=== PATIENT | male | born 1960 | race Hispanic/Latino ===

== ENCOUNTER 2023-10-26 11:10 | Inpatient (IN) | payer OTHER ==
--- OUTSIDE RECORDS SUMMARY | 2023-10-27 09:34 | XMS REPORT | Continuity of Care Document ---
Author Name Unknown Address [address] [facility] [address] [place] [address] [facility] thconnect Address [address] [facility] [address] [place] [address] Care Team Providers Care Delivery Analyst Name Role Phone Unavailable Unavailable Unavailable Encounters Start Date/Time End Date/Time Encounter Type Admission Type Attending Clinicians Care Facility Care Department Encounter ID Source 2023-10-19 08:06:25 2023-10-19 08:06:25 Outpatient SFA SFA [id number] Ramirez Flores 2023-10-18 10:55:17 2023-10-18 10:55:17 Outpatient SFA [id number] [id number] Ramirez Flores Results Test Description Test Time Test Comments Results Result Co mments Source LIPID [id number] 06:01:49* Test Item Value Reference Range Interpretation Comme nts CHOLESTEROL (test code = 2210) 182 MG/DL <200 TRIGLYCERIDES (test code = 2232) 96 MG/DL <150 HDL CHOLESTEROL (test code = 2220) 46 MG/DL >39 CALC LDL CHOL (test code = 2237) 116 MG/DL <100 H NOTE: CALCULATED LDL IS BASED ON IMAN-JI METHOD WHICHINCLUDES ADJUSTABLE TRIGLYCERIDE:VLDL CHOLESTEROL RATIO.THIS FACTOR VARIES BY MEASURED TRIGLYCERIDE AND NON-HDLCHOLESTEROL CONCENTRATIONS WITH INCREASED CALCULATED LDL SEENIN HIGHER TRIGLYCERIDE OR LOWER NON-HDL SPECIMENS. FOR MOREINFORMATION, SEE CLIENT ANNOUNCEMENT AT [email or web address] RATIO LDL/HDL (test code = 2238) 2.52 RATIO <3.55 COMPREHENSIVE METABOLIC [id number] 06:01:49* Test Item Value Reference Range Interpretation Comme nts GLUCOSE (test code = 2217) 123 MG/DL 70-99 H BUN (test code = 2208) 11 MG/DL 8-23 CREATININE (test code = 2213) 0.76 MG/DL 0.80-1.40 L eGFR (2020 CKD-EPI) (test code = 77550) 100 ML/MIN/1.73 >60 CALC BUN/CREAT (test code = 2234) 14 RATIO 6-28 SODIUM (test code = 2230) 139 MEQ/L 133-146 POTASSIUM (test code = 2227) 4.3 MEQ/L 3.5-5.4 CHLORIDE (test code = 2214) 102 MEQ/L 95-107 CARBON DIOXIDE (test code = 2205) 24 MEQ/L 19-31 CALCIUM (test code = 2208) 9.6 MG/DL 8.5-10.5 PROTEIN, TOTAL (test code = 2228) 7.9 G/DL 6.1-8.3 ALBUMIN (test code = 2200) 4.5 G/DL 3.5-5.2 CALC GLOBULIN (test code = 2239) 3.4 G/DL 1.9-3.7 CALC A/G RATIO (test code = 2233) 1.3 RATIO 1.0-2.6 BILIRUBIN, TOTAL (test code = 2206) 0.6 MG/DL <=1.2 ALKALINE PHOSPHATASE (test code = 2203) 102 U/L 40-123 AST (test code = 2217) 17 U/L 9-50 ALT (test code = 2218) 27 U/L 5-50 HEMOGLOBIN [id number] 04:05:52* Test Item Value Reference Range Interpretation Comme nts HEMOGLOBIN A1c (test code = 06684) 6.1 % 4.2-5.6 H [employer] GUIDELINES FOR HGB A1C: PREDIABETES/INCREASED RISK . . . . . . . 5.7-6.4% DIAGNOSIS OF DIABETES . . . . . . . . . >=6.5% WITH CONFIRMATION OR APPROPRIATE SYMPTOMS NOTE: ASSAY MAY BE AFFECTED BY HEMOGLOBINOPATHIES (SICKLE CELL ANEMIA, S-C DISEASE, OTHERS) OR ARTIFICIALLY LOWERED BY DECREASED RED CELL SURVIVAL (HEMOLYTIC ANEMIAS, BLOOD LOSS, ETC.). CONSIDER ALTERNATE TESTING OR LABORATORY CONSULTATION. CBC W/AUTO DIFF WITH [id number] 03:25:25* Test Item Value Reference Range Interpretation Comme nts WBC (test code = 1001) 9.1 K/UL 3.5-11.0 RBC (test code = 1002) 5.14 M/UL 4.50-6.10 HEMOGLOBIN (test code = 1003) 14.5 G/DL 13.5-17.0 HEMATOCRIT (test code = 1004) 44.6 % 40.0-51.0 MCV (test code = 1005) 86.8 fL 80.0-99.0 MCH (test code = 1006) 28.2 PG 25.0-33.0 MCHC (test code = 1007) 32.5 G/DL 31.0-36.0 RDW (test code = 1038) 12.1 % 11.5-15.0 NEUTROPHILS (test code = 1008) 68.4 % LYMPHOCYTES (test code = 1010) 22.6 % MONOCYTES (test code = 1011) 6.5 % EOSINOPHILS (test code = 1012) 1.5 % BASOPHILS (test code = 1013) 0.7 % IMMATURE GRANULOCYTES (test code = 1036) 0.3 % NUCLEATED RBCS (test code = 1065) 0.0 /100 WBC'S See_Comment [Automated messa ge] The system which generated this result transmitted reference range: 0.0. The reference range was not used to interpret this result as normal/abnormal. PLATELET COUNT (test code = 1015) 371 K/UL 130-400 ABSOLUTE NEUTROPHILS (test code = 1066) 6.20 K/UL 1.50-7.50 ABSOLUTE LYMPHOCYTES (test code = 1067) 2.05 K/UL 1.00-4.00 ABSOLUTE MONOCYTES (test code = 1068) 0.59 K/UL 0.20-1.00 ABSOLUTE EOSINOPHILS (test code = 1040) 0.14 K/UL 0.00-0.50 ABSOLUTE BASOPHILS (test code = 1069) 0.06 K/UL 0.00-0.20 ABS IMMATURE GRANULOCYTES (test code = 1020) 0.03 K/UL 0.00-0.10 ABS NUCLEATED RBCS (test code = 91926) 0.00 K/UL 0.00-0.11
[2023-10-27] MEDS ORDERED: DOCUSATE NA 100 MG CAP PO PRN (10:32)
[2023-10-27] MEDS ORDERED: HYDROCORTISONE 1 % CREAM 30GM TOP PRN (10:33)
[2023-10-27] MEDS: ACETAMINOPHEN 500 MG TAB PO PRN (11:03)
[2023-10-27 14:51] VITALS: BMI 30.2
[2023-10-27] MEDS: GABAPENTIN 300 MG CAP PO SCH ×2 (15:04→19:21)
[2023-10-27] MEDS: MAGNESIUM OXIDE 400 MG TAB PO SCH ×2 (15:04→19:21)
[2023-10-27 15:52] LABS: Specific Gravity > 1.030 (1.005-1.030); Urine Bacteria None Seen /HPF (<20); Urine Bilirubin NEGATIVE (Negative); Urine Blood Negative (Negative); Urine Clarity Extremely Turbid (Clear); Urine Color Yellow (Yellow); Urine Crystals Unidentified Few /HPF (None Seen); Urine Glucose NEGATIVE (Negative); Urine Mucus 4+ /HPF (None Seen); Urine Protein 1+ (Negative); Urine RBC <5 /HPF (None Seen); Urine Urobilinogen 1+ (Normal); Urine pH 5.5 (5.0-7.0)
[2023-10-27] MEDS: APIXABAN 2.5 MG TABLET PO SCH (19:21)
[2023-10-27] MEDS: ATORVASTATIN 10 MG TAB PO SCH (19:22)
[2023-10-27] MEDS: KETOCONAZOLE CREAM 15 GM TUBE TOP SCH (19:22)
--- NOTE | 2023-10-27 23:52 | HP ---
Date of Admission: 10/27/2023 Time Of Service: 1 p.m. Chief Complaint: "I became very weak and could not walk." History Of Present Illness: Mr. Mancilla is a 63-year-old right-handed patient with hyperte nsion, who is admitted to the inpatient rehabilitation unit with Guillain-[place]. Symptoms began arou nd the 19 of October, following about 3 weeks of a diarrheal illness. He developed ascending numb ness and weakness from the feet to the legs towards his knees. He was seen and evaluated, found to h ave loss of deep tendon reflexes and ascending numbness in the lower extremities. Evaluation include d a lumbar puncture, which identified elevated protein of 80, white blood cells of 1 with an albumino cytologic dissociation. He was diagnosed with Guillain-[place] syndrome and treated with IVIG 2 mg/kg over 5 days. He had cervical pain and neck spasms, and an MRI of the cervical spine was done and rul ed out acute abnormalities. He did require frequent neuro checks every 4 hours and blood pressure ma nagement, and was given gabapentin for neuropathic pain. He did have hypokalemia complicating his ho spital course. He was evaluated by Physical and Occupational Therapy, and felt to be functioning wel l below his baseline, requiring maximal assistance for transfers, mobilization, ambulation. As a res ult, he is determined to be a more appropriate candidate for aggressive inpatient rehabilitation whil e his comorbid hypokalemia, hypertension, and risk of worsening weakness, which may involve the respi ratory system are being managed inpatient. His admission would be more at risk if he were to be in a shelter facility given the lack of acute available medical management, and this will help hi m return towards his prior level of functioning where he may be able to return home with family. Past Medical History: As noted. Allergies: NO KNOWN DRUG ALLERGIES. X-ray/imaging: Chest x-ray on 10/20/2023 showed patchy bilateral interstitial and airspace opacifica tion, and peribronchial cuffing may represent bronchopneumonia. There is bibasilar segmental atelect asis. Cervical spine MRI done on 10/25/2023 shows multilevel cervical spinal degeneration changes wi thout significant canal stenosis. There is inflammatory versus infectious synovitis at the left C3-C 4 facet joint. There is moderate to severe left C3-C4 neural foraminal stenosis and moderate right C 4-C5 neural foraminal narrowing. Medications: Eliquis 2.5 mg twice daily, Tylenol 500 mg every 6 hours, Lipitor 10 mg at bedtime, Col mane 100 mg daily, gabapentin 600 mg 3 times daily, hydrochlorothiazide 12.5 mg daily, apply cortisone cream to itching area 3 times daily, ketoconazole cream applied topically twice daily, Prinivil 20 m g daily, magnesium oxide 400 mg twice daily. Family History: Noncontributory. Social History: Denies alcohol, tobacco, or IV drug use. Review of Systems: He denies recent fevers or chills, but has had abdominal pain with diarrhea as noted and progressive weakness in the lower extremities and numbness, and neck pain radiating into the arms. He has diffic ulty with his gait, balance, and coordination. Otherwise, no other positives on a 10-point systems r eview. Current Level Of Functioning: Currently, he is independent for eating, oral hygiene, toilet hygiene. Supervision for bathing. Upper body dressing, independent. Lower body dressing, contact guard to supervision. Sitting, contact guard to supervision. Maximum assistance for transferring from bed to chair. Ambulation: Did not ambulate at the time. He was very unsteady on his feet and then mobili zed the wheelchair, had difficulty doing so in therapy. Physical Examination: Vital Signs: Blood pressure 116/69, pulse of 104, respiratory rate 15, temperature 99.2, oxygen satu ration 94%. Weight 187 pounds, height 5 feet 6 inches, BMI 30.2. General: Mr. Mancilla is lying in bed. His family is at bedside. HEENT: He appears normocephalic, atraumatic. Sclerae anicteric. Oropharynx is pink and moist. Neck: Supple. Chest: Clear. Heart: Regular. Extremities: Show no significant clubbing, cyanosis, or edema. Neurological: Cranial nerves show no focal deficits. Motor examination: Upper extremities distally , mild weakness, 4/5 bilaterally; proximally 5/5. Lower extremities: He has at least 4/5 strength p roximally and distally. He has a sensory loss in a stocking-glove fashion and decreased reflexes in the lower extremities. Coordination shows dysmetria in jhfhjp-af-iyon and gvhz-jy-xcfl. He will be ambulated with gait belt. Laboratory Studies: White blood cell count 5.6, hemoglobin 12.7, hematocrit 38.7, platelets 174. So dium 137, potassium 3.9, glucose 105, BUN 14, creatinine 0.65. Calcium 8.8, magnesium 2.0. His urin alysis from 10/27/2023 shows extreme turbid clarity, specific gravity greater than 1.03, trace ketone s, 1+ urobilinogen, hyaline casts are greater than 20, urine mucus 4+, urine protein 1+. COVID-[address] is negative. Rehabilitation And Medical Assessment And Plan: Mr. Mancilla is admitted to inpatient rehabilitation unit with impairment category of 19, Guillain-[place] syndrome. 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 His comorbidities are decr ease in physical functioning, hypertension, pain, cervical radiculopathy at C4-5 bilaterally. Plan: 1.He will have physical and occupational therapy for 3.5 hours, 5 of 7 days. 2.DVT prophylaxis with Eliquis 2.5 mg twice daily. 3.Dyslipidemia, treated with Lipitor 10 mg at bedtime. 4.Constipation, treated with Colace 100 mg daily. 5.Pain, managed with Tylenol. 6.Blood pressure managed with hydrochlorothiazide with hold parameters of systolic blood pressures l ess than 120. Prinivil also will be held if systolic blood pressure is less than 120. Magnesium oxi de for muscle spasms 400 mg twice daily. Impact Of Comorbidities: Currently, the cervical radiculopathy can produce some pain in the upper ex tremities. Pain patch will be applied to the neck if need be and will have gabapentin adjustment. Eliza williamson is on 600 mg 3 times daily of gabapentin and that may be adjusted. Otherwise, his diffuse weakness in the lower extremities with incoordination may make it difficult for him to be able to ambulate we and return home. He will, however, have family training and depending on how well he is doing, marta y be able to go home. If not, may have to go to shelter for an extended period. His chest x -ray earlier did suggest possibility of pneumonia. A repeat chest x-ray will be done. Urinalysis al so suggests possibility of urinary tract infection and the urine cultures will be followed. Rehab Specific Plan: Mr. Mancilla will have physical and occupational therapy for 3.5 hours, 5 of 7 days to improve his ability to transfer from bed to chair, to toilet to shower. To be able to ambula te more than household distances greater than 250 feet if possible with a rolling walker. Propel a w heelchair also 250 feet and go up and down 10 steps; all with modified independence. Mr. Mancilla will have shelter 24 hours a day, physician evaluation on a daily basis, and [facility] evaluation and management to facilitate his rehabilitation improvement as he has physica l and occupational therapy. Given his complex condition and risk of further complications, rehabilit ation cannot be safely or effectively provided at a lower level facility such as shelter. Barriers To Discharge: Currently, his gait is unsteady and ataxic, and very difficult to ambulate an d his return of function such as coordination, especially in the lower extremities may extend beyond the time given in inpatient rehabilitation and again may have to go to shelter depending on h ow he is recovering. However, family will be involved and the goal is to get him home with [facility] to continue therapy. Length Of Stay: About 2 weeks. Disposition: Home with 24-hour care and supervision to avoid falling and injury. Prognosis: Fair. Rehabilitation Goals: 1.Become independent with upper and lower body dressing, toileting, showering, donning and doffing o f shoes. 2.Independently ambulate 250 feet with a rolling walker. 3.Independently propel a wheelchair 250 feet. 4.Independently go up and down 15 steps with bilateral handrails. 5.Independently perform all of his cognitive functioning, including medication management, good safe ty awareness and judgment. The above goals were reviewed with Mr. Mancilla and family, and they are in agreement. By signing this document, I acknowledge that I performed a full physical examination on Mr. Mancilla no later than 24 hours after his admission to the inpatient rehabilitative facility and determined th at he is able to tolerate the above course of treatment at an intensive level for a reasonable period of time. A detailed individualized plan of care for him will be completed by hospital day 4 based o n the preadmission screen, history and physical, and Therapy evaluations. NOELLE Voice ID: [id number]
[2023-10-28 03:51] LABS: Absolute Lymphocytes (CBC) 1.2 K/uL (0.7-4.9); Hematocrit 37.9 % (39.6-49.0); Lymphocytes % 19.5 % (15.3-44.8); MCV 88.3 fL (80-100); MPV 9.9 fL (7.6-11.3); Platelets 149 thou/uL (152-406); RBC Red Blood Cell Count 4.29 M/uL (4.33-5.43)
[2023-10-28 04:07] LABS: Albumin 2.8 g/dL (3.4-5.0); Magnesium 2.3 mg/dL (1.6-2.4); Potassium 4.1 mEq/L (3.5-5.1); Prealbumin 15.1 mg/dL (20-40)
[2023-10-28] MEDS: APIXABAN 2.5 MG TABLET PO SCH ×2 (07:39→20:23)
[2023-10-28] MEDS: MAGNESIUM OXIDE 400 MG TAB PO SCH ×2 (07:40→20:24)
[2023-10-28] MEDS: GABAPENTIN 300 MG CAP PO SCH ×3 (07:40→20:27)
[2023-10-28] MEDS: KETOCONAZOLE CREAM 15 GM TUBE TOP SCH ×2 (07:42→20:24)
[2023-10-28] MEDS: lisinopriL 20 MG TAB PO SCH (07:45)
[2023-10-28] MEDS ORDERED: hydroCHLOROthiazide 12.5 MG CAP PO SCH (08:00)
[2023-10-28] MEDS ORDERED: lisinopriL 20 MG TAB PO SCH (08:00)
[2023-10-28] MEDS: hydroCHLOROthiazide 12.5 MG CAP PO SCH (08:15)
--- NOTE | 2023-10-28 13:30 | P.RH.PN ---
Estimated Length of Stay: 18 Expected Discharge Date: 11/14/23 Discharge Disposition Plan: Home Family Support: Yes Intermediate Goal: Mobility, Transfers, Self Care Vital Signs: Last Vital Signs Temp 98.4 F 10/28/23 07:46 Pulse 92 H 10/28/23 08:15 Resp 14 10/28/23 07:46 BP 115/70 10/28/23 08:15 Pulse Ox 92 10/28/23 07:46 Laboratory: Laboratory Last Values WBC 6.10 thou/uL (4.3-10.9) 10/28/23 03:01 RBC 4.29 M/uL (4.33-5.43) L 10/28/23 03:01 Hgb 12.7 g/dL (13.6-17.9) L 10/28/23 03:01 Hct 37.9 % (39.6-49.0) L 10/28/23 03:01 MCV 88.3 fL (80-100) 10/28/23 03:01 MCH 29.5 pg (27.0-35.0) 10/28/23 03:01 MCHC 33.5 g/dL (32.0-36.0) 10/28/23 03:01 RDW 13.6 % (12.1-15.2) 10/28/23 03:01 Plt Count 149 thou/uL (152-406) L 10/28/23 03:01 MPV 9.9 fL (7.6-11.3) 10/28/23 03:01 Neutrophils % 67.6 % (41.7-73.7) 10/28/23 03:01 Lymphocytes % 19.5 % (15.3-44.8) 10/28/23 03:01 Monocytes % 12.0 % (3.3-12.3) 10/28/23 03:01 Eosinophils % 0.3 % (0-4.4) 10/28/23 03:01 Basophils % 0.6 % (0-1.3) 10/28/23 03:01 Absolute Neutrophils 4.1 K/uL (1.8-8.0) 10/28/23 03:01 Absolute Lymphocytes 1.2 K/uL (0.7-4.9) 10/28/23 03:01 Absolute Monocytes 0.7 K/uL (0.1-1.3) 10/28/23 03:01 Absolute Eosinophils 0.0 K/uL (0-0.5) 10/28/23 03:01 Absolute Basophils 0.0 K/uL (0-0.5) 10/28/23 03:01 Sodium 133 mEq/L (136-145) L 10/28/23 03:01 Potassium 4.1 mEq/L (3.5-5.1) 10/28/23 03:01 Chloride 101 mEq/L (98-107) 10/28/23 03:01 Carbon Dioxide 27 mEq/L (21-32) 10/28/23 03:01 Anion Gap 9.1 mEq/L (5.0-15.0) 10/28/23 03:01 BUN 16 mg/dL (7-18) 10/28/23 03:01 Creatinine 0.81 mg/dL (0.70-1.30) 10/28/23 03:01 Est GFR (CKD-EPI) 98 ml/min (=/>90) 10/28/23 03:01 Glucose 108 mg/dL (74-106) H 10/28/23 03:01 Calcium 8.7 mg/dL (8.5-10.1) 10/28/23 03:01 Magnesium 2.3 mg/dL (1.6-2.4) 10/28/23 03:01 Albumin 2.8 g/dL (3.4-5.0) L 10/28/23 03:01 Prealbumin 15.1 mg/dL (20-40) L 10/28/23 03:01 Urine Color Yellow (Yellow) 10/27/23 15:15 Urine Clarity Extremely turbid (Clear) H 10/27/23 15:15 Urine pH 5.5 (5.0-7.0) 10/27/23 15:15 Ur Specific Mobile > 1.030 (1.005-1.030) H 10/27/23 15:15 Glucose (UA)(Auto) Negative (Negative) 10/27/23 15:15 Urine Ketones Trace (Negative) H 10/27/23 15:15 Urine Blood Negative (Negative) 10/27/23 15:15 Urine Nitrite Negative (Negative) 10/27/23 15:15 Urine Bilirubin Negative (Negative) 10/27/23 15:15 Urine Urobilinogen 1+ (Normal) H 10/27/23 15:15 Ur Leukocyte Esterase Negative Aparna/uL (Negative) 10/27/23 15:15 Urine RBC <5 /HPF (None Seen) 10/27/23 15:15 Urine WBC <5 /HPF (<5) 10/27/23 15:15 Ur Squamous Epith Cells <5 /HPF (None Seen) 10/27/23 15:15 Unidentified Crystals Few /HPF (None Seen) 10/27/23 15:15 Urine Bacteria None seen /HPF (<20) 10/27/23 15:15 Hyaline Casts >20 /LPF (None Seen) H 10/27/23 15:15 Urine Mucus 4+ /HPF (None Seen) H 10/27/23 15:15 Urine Culture Reflexed Not needed 10/27/23 15:15 Urine Total Protein 1+ (Negative) H 10/27/23 15:15 SARS-CoV-2 Rap RNA(RT-PCR) Negative (NEGATIVE) 10/27/23 13:45 Weight: 187 lb Wound Present: No Physician Update: Labs reviewed and are stable. Mildly low prealbumin on Ensure High Protein. Mild anemia. Moderate to total assistance for transfers. Walked 15' with 4 helpers. He did lateral transfers with SBA. He needs the ABHISHEK lift to stand. 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 Please see the Rehabilitation Signature page for all necessary signatures.
[2023-10-28] MEDS: ENSURE HIGH PROTEIN 237 ML CAN PO SCH (20:23)
[2023-10-28] MEDS: ATORVASTATIN 10 MG TAB PO SCH (20:27)
[2023-10-28] MEDS: ACETAMINOPHEN 500 MG TAB PO PRN (20:37)
[2023-10-29] MEDS: MAGNESIUM OXIDE 400 MG TAB PO SCH ×2 (07:23→20:00)
[2023-10-29] MEDS: GABAPENTIN 300 MG CAP PO SCH ×3 (07:23→20:00)
[2023-10-29] MEDS: APIXABAN 2.5 MG TABLET PO SCH ×2 (07:23→20:00)
[2023-10-29] MEDS: hydroCHLOROthiazide 12.5 MG CAP PO SCH (08:00)
[2023-10-29] MEDS: lisinopriL 20 MG TAB PO SCH (08:00)
[2023-10-29] MEDS: ENSURE HIGH PROTEIN 237 ML CAN PO SCH ×2 (09:53→20:00)
[2023-10-29] MEDS: KETOCONAZOLE CREAM 15 GM TUBE TOP SCH ×2 (09:54→19:59)
[2023-10-29] MEDS: CEPHALEXIN 250 MG CAP PO SCH ×2 (17:50→23:56)
[2023-10-29] MEDS: ATORVASTATIN 10 MG TAB PO SCH (20:00)
[2023-10-30] MEDS: CEPHALEXIN 250 MG CAP PO SCH ×4 (05:07→23:23)
[2023-10-30] MEDS: GABAPENTIN 300 MG CAP PO SCH ×3 (07:23→19:28)
[2023-10-30] MEDS: KETOCONAZOLE CREAM 15 GM TUBE TOP SCH (07:24)
[2023-10-30] MEDS: HYDROCORTISONE 1 % CREAM 30GM TOP SCH (07:24)
[2023-10-30] MEDS: ENSURE HIGH PROTEIN 237 ML CAN PO SCH ×2 (07:24→19:28)
[2023-10-30] MEDS: CRANBERRY FRUIT EXTRACT 200 MG CAP PO SCH ×2 (07:24→19:28)
[2023-10-30] MEDS: APIXABAN 2.5 MG TABLET PO SCH ×2 (07:24→19:28)
[2023-10-30] MEDS: hydroCHLOROthiazide 12.5 MG CAP PO SCH (07:24)
[2023-10-30] MEDS: lisinopriL 20 MG TAB PO SCH (07:24)
[2023-10-30] MEDS: MAGNESIUM OXIDE 400 MG TAB PO SCH ×2 (07:24→19:28)
[2023-10-30] MEDS: ATORVASTATIN 10 MG TAB PO SCH (19:28)
[2023-10-31] MEDS: CEPHALEXIN 250 MG CAP PO SCH ×4 (05:19→23:37)
[2023-10-31] MEDS: MAGNESIUM OXIDE 400 MG TAB PO SCH ×2 (07:28→20:24)
[2023-10-31] MEDS: CRANBERRY FRUIT EXTRACT 200 MG CAP PO SCH ×2 (07:28→20:23)
[2023-10-31] MEDS: GABAPENTIN 300 MG CAP PO SCH ×3 (07:28→20:23)
[2023-10-31] MEDS: APIXABAN 2.5 MG TABLET PO SCH ×2 (07:28→20:24)
[2023-10-31] MEDS: hydroCHLOROthiazide 12.5 MG CAP PO SCH (07:29)
[2023-10-31] MEDS: ENSURE HIGH PROTEIN 237 ML CAN PO SCH ×2 (07:29→20:24)
[2023-10-31] MEDS: lisinopriL 20 MG TAB PO SCH (07:30)
[2023-10-31] MEDS: KETOCONAZOLE CREAM 15 GM TUBE TOP SCH (08:00)
[2023-10-31] MEDS: HYDROCORTISONE 1 % CREAM 30GM TOP SCH (08:00)
[2023-10-31] MEDS ORDERED: HYDROCORTISONE 1 % CREAM 30GM TOP PRN (10:26)
[2023-10-31] MEDS ORDERED: KETOCONAZOLE CREAM 15 GM TUBE TOP PRN (10:26)
[2023-10-31] MEDS: ATORVASTATIN 10 MG TAB PO SCH (20:23)
[2023-11-01] MEDS: CEPHALEXIN 250 MG CAP PO SCH ×4 (05:02→23:27)
[2023-11-01] MEDS: CRANBERRY FRUIT EXTRACT 200 MG CAP PO SCH ×2 (07:21→19:43)
[2023-11-01] MEDS: APIXABAN 2.5 MG TABLET PO SCH ×2 (07:21→19:43)
[2023-11-01] MEDS: MAGNESIUM OXIDE 400 MG TAB PO SCH ×2 (07:22→19:44)
[2023-11-01] MEDS: lisinopriL 20 MG TAB PO SCH (07:23)
[2023-11-01] MEDS: hydroCHLOROthiazide 12.5 MG CAP PO SCH (07:23)
[2023-11-01] MEDS: ENSURE HIGH PROTEIN 237 ML CAN PO SCH ×2 (08:42→19:44)
[2023-11-01] MEDS: GABAPENTIN 300 MG CAP PO SCH ×3 (08:43→19:42)
[2023-11-01] MEDS: ATORVASTATIN 10 MG TAB PO SCH (19:42)
--- NOTE | 2023-11-01 21:37 | PN ---
Date of Progress Note: 11/01/2023 Time Of Service: 3 p.m. Subjective: Mr. Mancilla is resting comfortably. He is in no acute distress. He has no new complai nts. Family is at the bedside. He is happy with his progress. He is working with the director physical apist while lying in bed, doing coordination exercises with his legs in bed. Review of Systems: No fevers, chills, nausea, vomiting, myalgias, arthralgias. No psychiatric issues. No gastrointesti nal complaints. No genitourinary complaints. Physical Examination: Vital Signs: Blood pressure 106/58, pulse 93, respiratory rate of 16, temperature 98.7, oxygen satur ation 93%. Weight 187 pounds, height 5 feet 6 inches, BMI 30.2. General: Mr. Mancilla is lying in bed. HEENT: He is normocephalic, atraumatic. Sclerae are anicteric. Oropharynx is moist. Neck: Supple. Chest: Clear. Heart: Regular. Musculoskeletal: His biggest issue is the coordination after his Guillain-[place], where he has diffic ulty placing his extremities, but he is doing much better with coordination of his lower and upper ex tremities, and is walking much better with the therapists. Laboratory Studies: No new laboratory studies. X-ray/imaging: No new x-rays or imaging. Medications: Currently, he is on Keflex. He has an area in the left antecubital region, where an in filtrated IV was. He is on Keflex, started 10/29 to go to 11/03, 500 mg every 6 hours for a presumed cellulitis. He does have Eliquis 2.5 mg twice daily for DVT prophylaxis, Lipitor 10 mg at night for dyslipidemia, Tylenol 500 mg as needed for pain, Colace 100 mg daily for constipation, gabapentin 60 0 mg 3 times daily for neuropathic pain, hydrochlorothiazide 12.5 mg daily for fluid management, hydr ocortisone cream for itching, ketoconazole topically apply for the rash in the arm, Prinivil 20 mg da brooke, magnesium oxide 400 mg twice daily, and Ensure High Protein 237 mL twice daily for malnutrition. Progress Made With Physical And Occupational Therapy: Today, with Physical Therapy, he completed gai t training, ambulating 125 feet with a rolling walker without the platform with maximum assistance an d wheelchair was following. Also completed gait training for 120 feet and 150 feet with the rolling walker, then mobilized a wheelchair 250 feet with modified independence. With Occupational Therapy, independent with bed mobilization, ambulated 30 feet, contact guard from toilet to come back to the r oom, he used grab bars. Also self-propelled wheelchair 250 feet 4 times alternating forwards and hu kwards. Did repetitive ccr-cl-addhg 4 times without using the upper extremities and did a recumbent bike exercise for 15 minutes. With his therapy, physical and occupational, he is making great progress. Coordination is improving; strength, which is not an issue from the beginning, is well maintained; and upper and lower extremit y coordination, again improving. Assessment: Mr. Mancilla is a 63-year-old patient in the rehabilitation unit with Guillain-[place], fr om which he is recovering well. He was treated initially prior to coming in hospital with IVIG and i s now in the recovery phase. His comorbidities are hypertension, cervical radiculopathy at 4-5 with bilateral impingement, constipation, wrist pain, left forearm cellulitis, muscle spasms. Plan: 1.Continue with physical and occupational therapy for 3 hours a day, 5 of 7 days. 2.The list of medications as noted above will be continued for comorbid conditions, including the Ke flex for cellulitis; protein supplementation for malnutrition; magnesium for muscle spasms; Prinivil for hypertension; hydrochlorothiazide for fluid management. Comorbidities That Continue To Impact Rehabilitation: Currently, he is doing very well and his comor bidities are stably managed and they do not negatively impact his rehabilitation. He is continuing antibiotics as noted for cellulitis and he is mobilizing much better. His mood is good and no negati ves in terms of his comorbids. LB/MODL Voice ID: [id number] Report ID: [id number]
[2023-11-02] MEDS: CEPHALEXIN 250 MG CAP PO SCH ×4 (05:01→23:55)
[2023-11-02] MEDS: hydroCHLOROthiazide 12.5 MG CAP PO SCH (08:00)
[2023-11-02] MEDS: lisinopriL 20 MG TAB PO SCH (08:00)
[2023-11-02] MEDS: APIXABAN 2.5 MG TABLET PO SCH ×2 (09:00→19:55)
[2023-11-02] MEDS: ENSURE HIGH PROTEIN 237 ML CAN PO SCH ×2 (09:14→19:56)
[2023-11-02] MEDS: CRANBERRY FRUIT EXTRACT 200 MG CAP PO SCH ×2 (09:14→19:55)
[2023-11-02] MEDS: MAGNESIUM OXIDE 400 MG TAB PO SCH ×2 (09:36→19:56)
[2023-11-02] MEDS: GABAPENTIN 300 MG CAP PO SCH ×3 (09:39→19:56)
[2023-11-02] MEDS: ATORVASTATIN 10 MG TAB PO SCH (19:55)
--- NOTE | 2023-11-02 20:17 | PN ---
Date of Progress Note: 11/02/2023 Time Of Service: 1:00 p.m. Subjective: Mr. Mancilla is heading to the gym area. He is doing very well. He is happy with his p rogress. He is walking actually in a wheelchair, mobilizing it with his legs and the physical therap ist is close by. He has no new complaints. Denies any issues in the legs and is kind of happy with his progress. Review of Systems: No fevers, chills, nausea, vomiting. No significant myalgias, arthralgias. No rash. No psychiatric complaints. No gastrointestinal or genitourinary complaints. Physical Examination: Vital Signs: Blood pressure 116/63, pulse 78, respiratory rate 16, temperature 97.2, oxygen saturati on 92%. General: Mr. Mancilla again is mobilizing his wheelchair towards the gym area. HEENT: He is normocephalic, atraumatic. Sclerae anicteric. Oropharynx pink and moist. Neck: Supple. Chest: Clear. Heart: Regular. Extremities: In his lower extremities, he has good strength proximally and distally. 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 Laboratory Studies: No new laboratory studies. X-ray/imaging: No new x-rays or imaging. Medications: His medications have been reviewed and remain unchanged. Progress Made With His Physical And Occupational Therapy: In terms of physical therapy, his funmilayo lepe is independent, sit to stand transfers and stand pivot transfers with contact guard to minim um assistance. He did gait training, ambulating 150 feet with a rolling walker with contact guard to minimal assistance. He was able to go up and down 10 steps with minimum assistance. He mobilized w heelchair, covering 250 feet with standby assistance. In the afternoon session, he ambulated 325 fee t with a rolling walker with contact guard assistance. With occupational therapy, he was independent with supine to sit transfers and with the occupational therapist, he did self propel a wheelchair 50 0 feet alternating forwards and backwards without rest breaks. 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 He is on track to be discharged and would likely benefit from outpatient physical therapy, which is more aggressive. Assessment: Mr. 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 His comorbidities, hypertension, cervical radiculop athy, constipation, left forearm cellulitis, and muscle spasms are all improving very well. Plan: 1.Continue with physical and occupational therapy for 3 hours a day, 5/7 days. 2.Continue with the antibiotics, which is the Keflex for cellulitis of the left forearm. 3.Continue with magnesium oxide for muscle spasms. Continue with hypertension management with Prini mojgan. 4.Continue with Eliquis 2.5 mg twice daily for DVT prophylaxis. 5.Colace for constipation. In addition to the Prinivil, hydrochlorothiazide and diuretic for his bl ood pressure control. Comorbidities That Continue To Impact Rehabilitation: His comorbidities are well controlled and do n ot negatively impact his rehabilitation. LB/MODL Voice ID: [id number] Report ID: [id number]
[2023-11-03] MEDS: CEPHALEXIN 250 MG CAP PO SCH ×2 (05:06→13:20)
[2023-11-03] MEDS: CRANBERRY FRUIT EXTRACT 200 MG CAP PO SCH ×2 (07:40→19:10)
[2023-11-03] MEDS: hydroCHLOROthiazide 12.5 MG CAP PO SCH (07:40)
[2023-11-03] MEDS: APIXABAN 2.5 MG TABLET PO SCH ×2 (07:40→19:11)
[2023-11-03] MEDS: ENSURE HIGH PROTEIN 237 ML CAN PO SCH ×2 (07:43→19:11)
[2023-11-03] MEDS: MAGNESIUM OXIDE 400 MG TAB PO SCH ×2 (07:43→19:11)
[2023-11-03] MEDS: lisinopriL 20 MG TAB PO SCH (08:00)
[2023-11-03] MEDS: GABAPENTIN 300 MG CAP PO SCH ×3 (08:31→19:10)
[2023-11-03 08:56] LABS: Absolute Lymphocytes (CBC) 1.9 K/uL (0.7-4.9); Hematocrit 39.8 % (39.6-49.0); Lymphocytes % 19.3 % (15.3-44.8); MCV 87.4 fL (80-100); MPV 8.5 fL (7.6-11.3); Platelets 284 thou/uL (152-406); RBC Red Blood Cell Count 4.56 M/uL (4.33-5.43)
[2023-11-03 09:15] LABS: Albumin 3.1 g/dL (3.4-5.0); Magnesium 2.7 mg/dL (1.6-2.4); Potassium 4.5 mEq/L (3.5-5.1)
[2023-11-03 10:26] LABS: Prealbumin 22.3 mg/dL (20-40)
[2023-11-03] MEDS: ATORVASTATIN 10 MG TAB PO SCH (19:10)
[2023-11-04] MEDS: hydroCHLOROthiazide 12.5 MG CAP PO SCH (07:08)
[2023-11-04] MEDS: APIXABAN 2.5 MG TABLET PO SCH ×2 (07:08→19:56)
[2023-11-04] MEDS: CRANBERRY FRUIT EXTRACT 200 MG CAP PO SCH ×2 (07:08→19:55)
[2023-11-04] MEDS: lisinopriL 20 MG TAB PO SCH ×2 (08:00→10:12)
[2023-11-04] MEDS: GABAPENTIN 300 MG CAP PO SCH ×3 (08:40→19:56)
[2023-11-04] MEDS: ENSURE HIGH PROTEIN 237 ML CAN PO SCH ×2 (08:41→19:56)
[2023-11-04] MEDS: MAGNESIUM OXIDE 400 MG TAB PO SCH ×2 (08:42→19:56)
[2023-11-04] MEDS: ACETAMINOPHEN 500 MG TAB PO PRN (08:42)
--- NOTE | 2023-11-04 14:07 | P.RH.PN ---
Estimated Length of Stay: 18 Expected Discharge Date: 11/16/23 Discharge Disposition Plan: Home Family Support: Yes Senior Care Goal: Mobility, Transfers, Self Care Vital Signs: Last Vital Signs Temp 98 F 11/04/23 08:00 Pulse 87 11/04/23 12:37 Resp 18 11/04/23 08:00 BP 85/61 L 11/04/23 12:37 Pulse Ox 95 11/04/23 08:00 Laboratory: Laboratory Last Values WBC 9.60 thou/uL (4.3-10.9) 11/03/23 08:35 RBC 4.56 M/uL (4.33-5.43) 11/03/23 08:35 Hgb 13.1 g/dL (13.6-17.9) L 11/03/23 08:35 Hct 39.8 % (39.6-49.0) 11/03/23 08:35 MCV 87.4 fL (80-100) 11/03/23 08:35 MCH 28.7 pg (27.0-35.0) 11/03/23 08:35 MCHC 32.9 g/dL (32.0-36.0) 11/03/23 08:35 RDW 13.5 % (12.1-15.2) 11/03/23 08:35 Plt Count 284 thou/uL (152-406) 11/03/23 08:35 MPV 8.5 fL (7.6-11.3) 11/03/23 08:35 Neutrophils % 72.1 % (41.7-73.7) 11/03/23 08:35 Lymphocytes % 19.3 % (15.3-44.8) 11/03/23 08:35 Monocytes % 4.7 % (3.3-12.3) 11/03/23 08:35 Eosinophils % 3.2 % (0-4.4) 11/03/23 08:35 Basophils % 0.7 % (0-1.3) 11/03/23 08:35 Absolute Neutrophils 6.9 K/uL (1.8-8.0) 11/03/23 08:35 Absolute Lymphocytes 1.9 K/uL (0.7-4.9) 11/03/23 08:35 Absolute Monocytes 0.5 K/uL (0.1-1.3) 11/03/23 08:35 Absolute Eosinophils 0.3 K/uL (0-0.5) 11/03/23 08:35 Absolute Basophils 0.1 K/uL (0-0.5) 11/03/23 08:35 Sodium 135 mEq/L (136-145) L 11/03/23 08:35 Potassium 4.5 mEq/L (3.5-5.1) 11/03/23 08:35 Chloride 105 mEq/L (98-107) 11/03/23 08:35 Carbon Dioxide 25 mEq/L (21-32) 11/03/23 08:35 Anion Gap 9.5 mEq/L (5.0-15.0) 11/03/23 08:35 BUN 20 mg/dL (7-18) H 11/03/23 08:35 Creatinine 0.97 mg/dL (0.70-1.30) 11/03/23 08:35 Est GFR (CKD-EPI) 87 ml/min (=/>90) L 11/03/23 08:35 Glucose 131 mg/dL (74-106) H 11/03/23 08:35 Calcium 9.6 mg/dL (8.5-10.1) 11/03/23 08:35 Magnesium 2.7 mg/dL (1.6-2.4) H 11/03/23 08:35 Albumin 3.1 g/dL (3.4-5.0) L 11/03/23 08:35 Prealbumin 22.3 mg/dL (20-40) 11/03/23 08:35 Urine Color Yellow (Yellow) 10/27/23 15:15 Urine Clarity Extremely turbid (Clear) H 10/27/23 15:15 Urine pH 5.5 (5.0-7.0) 10/27/23 15:15 Ur Specific [place] > 1.030 (1.005-1.030) H 10/27/23 15:15 Glucose (UA)(Auto) Negative (Negative) 10/27/23 15:15 Urine Ketones Trace (Negative) H 10/27/23 15:15 Urine Blood Negative (Negative) 10/27/23 15:15 Urine Nitrite Negative (Negative) 10/27/23 15:15 Urine Bilirubin Negative (Negative) 10/27/23 15:15 Urine Urobilinogen 1+ (Normal) H 10/27/23 15:15 Ur Leukocyte Esterase Negative Aparna/uL (Negative) 10/27/23 15:15 Urine RBC <5 /HPF (None Seen) 10/27/23 15:15 Urine WBC <5 /HPF (<5) 10/27/23 15:15 Ur Squamous Epith Cells <5 /HPF (None Seen) 10/27/23 15:15 Unidentified Crystals Few /HPF (None Seen) 10/27/23 15:15 Urine Bacteria None seen /HPF (<20) 10/27/23 15:15 Hyaline Casts >20 /LPF (None Seen) H 10/27/23 15:15 Urine Mucus 4+ /HPF (None Seen) H 10/27/23 15:15 Urine Culture Reflexed Not needed 10/27/23 15:15 Urine Total Protein 1+ (Negative) H 10/27/23 15:15 SARS-CoV-2 Rap RNA(RT-PCR) Negative (NEGATIVE) 10/27/23 13:45 Weight: 187 lb Wound Present: No Closed Surgical Incision Present: No Negative Pressure Wound Therapy Present: No Physician Update: Labs reviewed and magnesium is mildly elevated. Decrease mag nesium to 400 mg daily from BID. He is making very good progress with physical and occupational therapy. RW 450', steps with CGA, independent with ADLs and transfers. Comment: Face red with skin flakes.R ac and upper arm with redness from previous IV site Summary: Patient's care plan and usp goals have been reviewed and revised as necessary. Please see the Rehabilitation Signature page for all necessary signatures.
[2023-11-04] MEDS: ATORVASTATIN 10 MG TAB PO SCH (19:56)
[2023-11-05] MEDS: APIXABAN 2.5 MG TABLET PO SCH ×2 (07:38→19:40)
[2023-11-05] MEDS: CRANBERRY FRUIT EXTRACT 200 MG CAP PO SCH ×2 (07:38→19:40)
[2023-11-05] MEDS: hydroCHLOROthiazide 12.5 MG CAP PO SCH (07:38)
[2023-11-05] MEDS: MAGNESIUM OXIDE 400 MG TAB PO SCH ×2 (07:39→19:42)
[2023-11-05] MEDS: lisinopriL 20 MG TAB PO SCH (08:00)
[2023-11-05] MEDS: GABAPENTIN 300 MG CAP PO SCH ×3 (09:10→19:41)
[2023-11-05] MEDS: ENSURE HIGH PROTEIN 237 ML CAN PO SCH ×2 (09:11→19:42)
[2023-11-05] MEDS: ATORVASTATIN 10 MG TAB PO SCH (19:41)
[2023-11-06] MEDS: APIXABAN 2.5 MG TABLET PO SCH ×2 (08:53→19:43)
[2023-11-06] MEDS: CRANBERRY FRUIT EXTRACT 200 MG CAP PO SCH ×2 (08:53→19:43)
[2023-11-06] MEDS: hydroCHLOROthiazide 12.5 MG CAP PO SCH (08:53)
[2023-11-06] MEDS: GABAPENTIN 300 MG CAP PO SCH ×3 (08:54→19:43)
[2023-11-06] MEDS: ENSURE HIGH PROTEIN 237 ML CAN PO SCH ×2 (08:54→19:43)
[2023-11-06] MEDS: MAGNESIUM OXIDE 400 MG TAB PO SCH ×2 (08:54→19:43)
[2023-11-06] MEDS: lisinopriL 20 MG TAB PO SCH (08:54)
--- NOTE | 2023-11-06 18:18 | PN ---
Date of Progress Note: 11/06/2023 Time Of Service: 2:00 p.m. Subjective: Mr. Mancilla is in his room. Family is at the bedside. He is very happy, moving around very well in the wheelchair. Has no new complaints. Review of Systems: He has no fevers, chills, nausea, vomiting, myalgias, arthralgias, rash, headache, weight change. No other issues. Physical Examination: Vital Signs: Blood pressure 112/74, pulse 88, respiratory rate 16, temperature 97.1, oxygen saturati on 95%. General: Mr. Mancilla was sitting in a chair, again rolling back and forth with his legs. He is in no acute distress. HEENT: He is normocephalic, atraumatic. Sclerae anicteric. Oropharynx is pink and moist. Neck: Supple. Chest: Clear. Heart: Regular. Neurological: Mild incoordination in upper and lower extremities. Otherwise, his neurologic deficit s have resolved very well. Laboratory Studies: No new laboratory studies. X-ray/imaging: No new x-rays or imaging. Medications: Medications have been reviewed and remained unchanged. Progress With His Physical And Occupational Therapy: Patient was able to ambulate 350 feet with a ro lling walker with contact guard assistance. With occupational therapy, he worked on strengthening up per extremities with 2 pounds dumbbells and a ball toss and red Thera-Band and did very well with vikash t. His overall progress is excellent with physical and occupational therapy and will be ready for disch arge early next week. Assessment: Mr. 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 He is doing very well. Comorbidities are stable including hypertension, cervical ra diculopathy, constipation, cellulitis, muscle spasms. Plan: 1.Continue with physical, occupational, and speech therapy. 2.Finish his Keflex for cellulitis of the left forearm. 3.Continue magnesium for muscle spasms. 4.Eliquis 2.5 mg twice daily for DVT prophylaxis. 5.Continue with hypertensive medication management including Prinivil, hydrochlorothiazide. Comorbidities That Continue To Impact Rehabilitation: Continue to impact his rehabilitation currentl y comorbidities are stable and do not negatively impact his rehabilitation. LB/MODL Voice ID: [id number] Report ID: [id number]
[2023-11-06] MEDS: ATORVASTATIN 10 MG TAB PO SCH (19:43)
[2023-11-07] MEDS: MAGNESIUM OXIDE 400 MG TAB PO SCH ×2 (07:38→19:41)
[2023-11-07] MEDS: CRANBERRY FRUIT EXTRACT 200 MG CAP PO SCH ×2 (07:38→19:41)
[2023-11-07] MEDS: APIXABAN 2.5 MG TABLET PO SCH ×2 (07:38→19:42)
[2023-11-07] MEDS: lisinopriL 20 MG TAB PO SCH (08:00)
[2023-11-07] MEDS: hydroCHLOROthiazide 12.5 MG CAP PO SCH (08:00)
[2023-11-07] MEDS: ENSURE HIGH PROTEIN 237 ML CAN PO SCH ×2 (09:23→19:42)
[2023-11-07] MEDS: GABAPENTIN 300 MG CAP PO SCH ×3 (09:24→19:41)
[2023-11-07] MEDS: ATORVASTATIN 10 MG TAB PO SCH (19:41)
[2023-11-08] MEDS: ENSURE HIGH PROTEIN 237 ML CAN PO SCH ×2 (08:00→20:33)
[2023-11-08] MEDS: lisinopriL 20 MG TAB PO SCH (08:00)
[2023-11-08] MEDS: MAGNESIUM OXIDE 400 MG TAB PO SCH ×2 (08:00→20:33)
[2023-11-08] MEDS: CRANBERRY FRUIT EXTRACT 200 MG CAP PO SCH ×2 (08:45→20:33)
[2023-11-08] MEDS: APIXABAN 2.5 MG TABLET PO SCH ×2 (08:46→20:33)
[2023-11-08] MEDS: GABAPENTIN 300 MG CAP PO SCH ×3 (08:46→20:33)
[2023-11-08] MEDS: hydroCHLOROthiazide 12.5 MG CAP PO SCH (08:46)
[2023-11-08] MEDS: ATORVASTATIN 10 MG TAB PO SCH (20:33)
--- NOTE | 2023-11-08 21:28 | PN ---
Date of Progress Note: 11/08/2023 Time Of Service: 1 p.m. Subjective: Mr. Mancilla is sitting in his chair in the room. He is happy with his progress with th erapy, but still has difficulty with his balance and coordination. He has good strength. No other c omplaints in terms of subjective. Review of Systems: No fevers, chills, nausea, vomiting, myalgias, arthralgias, rash. No psychiatric complaints. No gen itourinary or gastrointestinal complaints. Physical Examination: Vital Signs: Blood pressure 121/63, pulse of 92, respiratory rate 16, temperature 97.1, oxygen satur ation 94%. General: Mr. Mancilla is sitting in a chair. HEENT: He is normocephalic, atraumatic. Sclerae anicteric. Oropharynx pink and moist. Neck: Supple. Chest: Clear. Heart: Regular. Extremities: Show no clubbing, cyanosis, or edema. He has a stocking-glove loss to light touch temp erature, depressed reflexes. Laboratory Studies: No new laboratory studies. X-ray/imaging: No new x-rays or imaging. Medications: His medications have been reviewed and remain unchanged. Progress With His Physical And Occupational Therapy: Today with physical therapy, [id number] done multiple times independently. He did work on stepping over a 1 foot tall object, walking on maintain ing good posture. He did mobilize a wheelchair without pain and said he was tired while doing therap y. Also ambulated with a rolling walker 350 feet, 200 feet, and 450 feet with contact guard assistan ce. With occupational therapy, propel a wheelchair 500 feet alternating using upper and lower extrem ities. He was independent for IADL safety. Mr. Mancilla is making excellent progress with physical and occupational therapy and is ready for dis charge in the next 2 days and it is recommended that he continue with outpatient therapy as he is doi ng so well. Assessment: Mr. Mancilla is a 63-year-old patient in the rehabilitation unit with Guillain-[place], he has hypertension, cervical radiculopathy, constipation, cellulitis, muscle spasms, and is doing very well with therapy. Plan: 1.Continue with physical and occupational therapy for 3 hours, 5 of 7 days. 2.He completed Keflex for left forearm cellulitis and actually looks very good. 3.Continue with Eliquis 2.5 mg twice daily for DVT prophylaxis. Continue with management of his hyp ertension with Prinivil and hydrochlorothiazide. Continue with magnesium for muscle spasms and stool softeners as appropriate. Comorbidities That Continue To Impact Rehabilitation: Currently, all his comorbidities are stably ma naged and do not negatively impact his rehabilitation. MISA/MATTHEW Voice ID: [id number] Report ID: [id number]
[2023-11-09] MEDS: CRANBERRY FRUIT EXTRACT 200 MG CAP PO SCH ×2 (06:55→19:31)
[2023-11-09] MEDS: hydroCHLOROthiazide 12.5 MG CAP PO SCH (06:55)
[2023-11-09] MEDS: MAGNESIUM OXIDE 400 MG TAB PO SCH ×2 (06:55→19:31)
[2023-11-09] MEDS: lisinopriL 20 MG TAB PO SCH (07:06)
[2023-11-09] MEDS: APIXABAN 2.5 MG TABLET PO SCH ×2 (07:07→19:31)
[2023-11-09] MEDS: ENSURE HIGH PROTEIN 237 ML CAN PO SCH ×2 (08:31→19:31)
[2023-11-09] MEDS: GABAPENTIN 300 MG CAP PO SCH ×3 (08:31→19:31)
[2023-11-09] MEDS: ATORVASTATIN 10 MG TAB PO SCH (19:31)
[2023-11-10 03:43] LABS: RBC Red Blood Cell Count 4.28 M/uL (4.33-5.43)
[2023-11-10 03:44] LABS: Absolute Lymphocytes (CBC) 1.7 K/uL (0.7-4.9); Lymphocytes % 20.3 % (15.3-44.8); MCV 86.4 fL (80-100); MPV 8.6 fL (7.6-11.3); Platelets 264 thou/uL (152-406)
[2023-11-10 03:59] LABS: Albumin 2.8 g/dL (3.4-5.0); Magnesium 2.3 mg/dL (1.6-2.4); Potassium 4.1 mEq/L (3.5-5.1); Prealbumin 17.3 mg/dL (20-40)
[2023-11-10 07:50] VITALS: BP 117/73; TEMP 96.5
[2023-11-10] MEDS: lisinopriL 20 MG TAB PO SCH (08:00)
[2023-11-10] MEDS: hydroCHLOROthiazide 12.5 MG CAP PO SCH (08:00)
[2023-11-10] MEDS: CRANBERRY FRUIT EXTRACT 200 MG CAP PO SCH (08:08)
[2023-11-10] MEDS: ENSURE HIGH PROTEIN 237 ML CAN PO SCH (08:09)
[2023-11-10] MEDS: APIXABAN 2.5 MG TABLET PO SCH (08:09)
[2023-11-10] MEDS: MAGNESIUM OXIDE 400 MG TAB PO SCH (08:09)
[2023-11-10] MEDS: GABAPENTIN 300 MG CAP PO SCH (08:10)
== END 2023-11-10 08:50 | disposition home health service (06) | DRG 74 ==
LOC: 5TH 10-27 09:20
PROVIDERS: ADMIT Psychiatry & Neurology Neurology with Special Qualifications in Child Neurology; ATTEND Psychiatry & Neurology Neurology with Special Qualifications in Child Neurology
DX: M54.12 Radiculopathy, cervical region (principal); L03.114 Cellulitis of left upper limb; M62.838 Other muscle spasm; G65.0 Sequelae of Guillain-Barre syndrome; E87.6 Hypokalemia; I10 Essential (primary) hypertension; K59.00 Constipation, unspecified; M25.539 Pain in unspecified wrist; Z11.52 Encounter for screening for COVID-19
CPT/HCPCS: 36415; 80048; 81001; 82040; 83735; 84134; 85025; 87086; 87088; 87635; 92523; 97110; 97112; 97116; 97163; 97165; 97530; 97542